=== PATIENT | female | born 1960 | race Caucasian/White ===

== ENCOUNTER 2018-07-16 19:19 | Emergency (ER) | payer MEDICAID ==
[~2018-07-16] VITALS: Ht 167.6 cm; Wt 145.0 kg
[~2018-07-16 19:19] MED LIST: ALBU18HF2 INH; ASPI81TA30 PO; CARV25TA2 PO; DULO-31 PO; FURO-150 PO; GABA-532 PO; HYDR-4353 PO; LISI-642 PO; LORA10TA7 PO; METF1000 PO; OMEP40CA37 PO; POTA8CAP9 PO; SIMV20TA5 PO; SPIIN INH; SPIR25TA PO; ZOLP5TAB8 PO
[2018-07-16] MEDS ORDERED: ipratropium/albuterol 3ml nebule NEB STA (19:44)
[2018-07-16] MEDS ORDERED: predniSONE 20 mg tablet PO STA (19:44)
[2018-07-16] MEDS ORDERED: PRED20TA PO (22:17)
[2018-07-16 23:24] VITALS: BP 133/87
== END 2018-07-16 23:26 | disposition home or self-care (01) ==
LOC: ER 19:20
DX: J44.1 Chronic obstructive pulmonary disease with (acute) exacerbation (principal); I11.0 Hypertensive heart disease with heart failure; I50.9 Heart failure, unspecified; J44.9 Chronic obstructive pulmonary disease, unspecified; E11.9 Type 2 diabetes mellitus without complications; G89.29 Other chronic pain; F15.90 Other stimulant use, unspecified, uncomplicated; Z98.890 Other specified postprocedural states; Z88.0 Allergy status to penicillin; Z88.6 Allergy status to analgesic agent; Z79.82 Long term (current) use of aspirin; Z79.899 Other long term (current) drug therapy
CPT/HCPCS: 36415; 71045; 84484; 93005; 94640; 94760; 99284; J7512